=== PATIENT | male | born 1960 | race Caucasian/White ===

== ENCOUNTER 2020-07-25 10:12 | Outpatient (CLI) | payer MEDICARE, MEDICAID, SELFPAY ==
[2020-07-25 11:38] LABS: Add Urine Microscopic? NO; Appearance Urine Clear (Clear); Bilirubin Urine Negative (Negative); Blood Urine Negative (Negative); Color Urine Straw (Yellow); Glucose Urine UA Negative (Negative); Ketones Urine Negative (Negative); Leukocyte Esterase Ur Negative LEU/UL (Negative); Nitrate Urine Negative (Negative); Protein Urine Negative (Negative); Specific Grav Ur 1.009 (1.001-1.035); Urobilinogen Urine Negative mg/dL (<2.0)
[2020-07-25 11:46] LABS: Hemoglobin A1C 5.9 % (<5.7); Prothrombin Time 13.3 Seconds (11.1-14.7); Urine Cotinine NEGATIVE
[2020-07-25 11:47] LABS: Partial Thromboplastin Time 27.3 SECONDS (22.3-36.8)
== END 2020-07-25 10:13 | disposition home or self-care (01) ==
PROVIDERS: PCP Family Medicine; Visit Provider Orthopaedic Surgery
DX: M17.10 Unilateral primary osteoarthritis, unspecified knee (principal); Z01.818 Encounter for other preprocedural examination
CPT/HCPCS: 80307; 81003; 83036; 85610; 85730; 86850; 86900; 86901; 87081

== ENCOUNTER 2020-12-19 09:33 | Outpatient (CLI) | payer MEDICARE, MEDICAID, SELFPAY ==
[2020-12-19 11:14] LABS: Basophils Absolute Auto 0.1 K/mm3 (0.0-0.1); Eosinophils Absolute Auto 0.4 K/mm3 (0-0.3); Eosinophils Percent Auto 5.8 % (0-4.4); Hemoglobin 14.9 g/dL (14.0-18.0); Immature Granulocyte Absolute 0.02 K/mm3 (0.00-0.031); Immature Granulocyte Percent A 0.3 % (0-0.5); Lymphocytes Absolute Auto 1.94 K/mm3 (0.9-3.2); Lymphocytes Percent Auto 28.7 % (18.3-44.2); Mean Corpuscular HGB Conc 33.9 g/dl (32-36); Mean Corpuscular Hemoglobin 31.3 pg (26-34); Mean Corpuscular Volume 92.4 fl (80-100); Mean Platelet Volume 8.9 fl (7.4-10.4); Monocytes Absolute Auto 1.1 K/mm3 (0.1-0.6); Monocytes Percent Auto 16.7 % (2.6-8.5); Neutrophils Absolute Auto 3.2 K/mm3 (1.3-6.7); Neutrophils Percent Auto 47.5 % (45.5-73.1); Platelet Count Result 238 k/mm3 (150-375); Red Blood Count 4.76 M/mm3 (4.6-6.20); Red Cell Distribution Width 13.1 % (11.5-14.5); White Blood Count 6.8 K/mm3 (4.5-10.0)
[2020-12-19 11:21] LABS: Add Urine Microscopic? YES; Appearance Urine Clear (Clear); Bilirubin Urine Negative (Negative); Blood Urine Negative (Negative); Color Urine Amber (Yellow); Glucose Urine UA Negative (Negative); Ketones Urine Negative (Negative); Leukocyte Esterase Ur Negative LEU/UL (Negative); Mucus Urine Few /lpf; Nitrate Urine Negative (Negative); Protein Urine 1+ mg/dL (Negative); RBC Urine 0-2 /hpf (0-2); Squamous Epithelial Cell Urine Rare /hpf (Few); Urobilinogen Urine Negative mg/dL (<2.0); WBC Urine 0-3 /hpf
[2020-12-19 11:24] LABS: Urine Cotinine NEGATIVE
[2020-12-19 11:27] LABS: INR 1.1; Prothrombin Time 14.3 Seconds (11.1-14.7)
[2020-12-19 11:32] LABS: Albumin Level 4.2 g/dL (3.5-5.1); Anion Gap 4 mmol/L (8-16); Blood Urea Nitrogen 20 mg/dL (9-20); Carbon Dioxide 35 mmol/L (22-30); Chloride 103 mmol/L (98-107); Estimated Glomerular Filt Rate > 60; Glucose 97 mg/dL (75-110); Sodium 142 mmol/L (137-145)
== END 2020-12-19 09:34 | disposition home or self-care (01) ==
PROVIDERS: PCP Family Medicine; Visit Provider Orthopaedic Surgery
DX: Z01.812 Encounter for preprocedural laboratory examination (principal); M17.11 Unilateral primary osteoarthritis, right knee; Z51.81 Encounter for therapeutic drug level monitoring; Z79.899 Other long term (current) drug therapy
CPT/HCPCS: 80048; 80307; 81001; 82040; 83036; 85025; 85610; 85730; 86850; 86900; 86901; 87081

== ENCOUNTER 2021-03-08 13:56 | Outpatient (CLI) | payer MEDICARE, MEDICAID, SELFPAY ==
[2021-03-08 14:29] LABS: Add Urine Microscopic? YES; Amorphous Sediment Urine Few; Appearance Urine Cloudy (Clear); Bacteria Urine Trace /hpf; Basophils Absolute Auto 0.1 K/mm3 (0.0-0.1); Bilirubin Urine Negative (Negative); Blood Urine Negative (Negative); Color Urine Yellow (Yellow); Eosinophils Absolute Auto 0.2 K/mm3 (0-0.3); Eosinophils Percent Auto 2.9 % (0-4.4); Glucose Urine UA Negative (Negative); Hematocrit 40.9 % (42.0-52.0); Immature Granulocyte Absolute 0.02 K/mm3 (0.00-0.031); Immature Granulocyte Percent A 0.3 % (0-0.5); Ketones Urine Negative (Negative); Leukocyte Esterase Ur Negative LEU/UL (Negative); Lymphocytes Absolute Auto 2.42 K/mm3 (0.9-3.2); Lymphocytes Percent Auto 39.2 % (18.3-44.2); Mean Corpuscular HGB Conc 34.2 g/dl (32-36); Mean Corpuscular Volume 90.5 fl (80-100); Mean Platelet Volume 8.8 fl (7.4-10.4); Monocytes Absolute Auto 0.7 K/mm3 (0.1-0.6); Monocytes Percent Auto 11.7 % (2.6-8.5); Mucus Urine Rare /lpf; Neutrophils Absolute Auto 2.8 K/mm3 (1.3-6.7); Neutrophils Percent Auto 44.9 % (45.5-73.1); Nitrate Urine Negative (Negative); Platelet Count Result 251 k/mm3 (150-375); Protein Urine Negative (Negative); Red Blood Count 4.52 M/mm3 (4.6-6.20); Red Cell Distribution Width 12.5 % (11.5-14.5); Specific Grav Ur 1.011 (1.001-1.035); Urobilinogen Urine Negative mg/dL (<2.0); WBC Urine 0-3 /hpf; White Blood Count 6.2 K/mm3 (4.5-10.0)
[2021-03-08 14:35] LABS: Albumin Level 4.2 g/dL (3.5-5.1); Anion Gap 8 mmol/L (8-16); Blood Urea Nitrogen 12 mg/dL (9-20); Carbon Dioxide 28 mmol/L (22-30); Chloride 105 mmol/L (98-107); Estimated Glomerular Filt Rate > 60; Glucose 125 mg/dL (75-110); Potassium 3.9 mmol/L (3.4-5.0); Prothrombin Time 13.8 Seconds (11.1-14.7); Sodium 141 mmol/L (137-145)
[2021-03-08 14:36] LABS: Partial Thromboplastin Time 28.6 SECONDS (22.3-36.8)
[2021-03-08 14:39] LABS: Urine Cotinine NEGATIVE
[2021-03-08 15:45] LABS: Atypical Lymphocytes Present; Platelet Estimate Adequate (Adequate)
== END 2021-03-08 13:57 | disposition home or self-care (01) ==
PROVIDERS: PCP Family Medicine; Visit Provider Orthopaedic Surgery
DX: Z01.812 Encounter for preprocedural laboratory examination (principal); M17.11 Unilateral primary osteoarthritis, right knee; Z51.81 Encounter for therapeutic drug level monitoring; Z79.899 Other long term (current) drug therapy
CPT/HCPCS: 80048; 80307; 81001; 82040; 85025; 85610; 85730; 86850; 86900; 86901; 87081

== ENCOUNTER → 2021-03-11 00:06 | Outpatient (CLI) | payer MEDICARE, MEDICAID, SELFPAY ==
[2021-03-11 16:57] LABS: SARS-CoV-2 RNA PCR Negative
== END ==
PROVIDERS: PCP Family Medicine; Visit Provider Orthopaedic Surgery
DX: Z01.812 Encounter for preprocedural laboratory examination (principal); Z20.822 Contact with and (suspected) exposure to COVID-19
CPT/HCPCS: C9803; U0003; U0005

== ENCOUNTER 2021-03-16 16:20 | Observation (INO) | payer MEDICARE, MEDICAID, SELFPAY ==
[2020-07-25 10:24] VITALS: BMI 32.6
[2020-07-25 11:22] VITALS: BP 138/70; PULSE 51; RESP 16; TEMP 36.8; O2SAT 100
[2020-12-19 09:58] VITALS: BP 153/71; PULSE 59; RESP 16; TEMP 36.7; O2SAT 97; BMI 33.2
[2021-03-03 13:23] VITALS: BMI 33.2
[2021-03-15] VITALS (18 sets, daily range): BP systolic 122–145; BP diastolic 63–88; PULSE 54–80; RESP 12–18; TEMP 36–36.8; O2SAT 94–100
--- NOTE | 2021-03-15 07:20 | WPDHPUPDATE1 ---
History and Physical Update Update Date/Time: 03/15/21 07:20 History and Physical has been reviewed, including an updated exam of the patient. There are NO changes in the patient's condition. Risks, benefits, and alternatives have been discussed and questions answered. Patient agrees to proceed with procedure.
[2021-03-15] MEDS: ACETAMINOPHEN 500 MG TABLET 1000 MG PO (09:28)
[2021-03-15] MEDS: LACTATED RINGERS 1,000 ML 30 ML IV CONT ×2 (09:56→13:57)
--- NOTE | 2021-03-15 10:25 | WPDANESEPPF ---
Anes - Initial Pre Proc Eval Procedure: Operation Date: 03/15/21 11:00 Proposed Procedures p Right Total Knee Arthroplasty - Francisco Vo MD Date/Time: 03/15/21 10:25 Surgeon: Francisco Vo MD Pre Op Diagnosis: Right Knee DJD Patient Data Age: 60 Gender: M Height: 1.75 m Weight: 99.2 kg Last Vital Signs Temp 36.8 C 03/15/21 09:18 Pulse 65 03/15/21 09:18 Resp 16 03/15/21 09:18 BP 125/72 03/15/21 09:18 Pulse Ox 98 03/15/21 09:18 Allergies Allergy/AdvReac Type Severity Reaction Status Date / Time adhesive tape AdvReac Mild Rash Verified 03/15/21 09:19 Home Medications Medication Instructions Recorded Confirmed Type albuterol sulfate 90 mcg/actuation 1 puff INHALATION Q4H PRN 02/29/20 03/15/21 History aerosol inhaler alprazolam 0.5 mg tablet 0.5 mg PO TID 02/29/20 03/15/21 History aspirin 81 mg tablet,delayed 81 mg PO DAILY 02/29/20 03/15/21 History release calcium carbonate 200 mg calcium 200 mg PO PRN PRN 02/29/20 03/15/21 History (500 mg) chewable tablet carvedilol 3.125 mg tablet 3.125 mg PO Q12H 02/29/20 03/15/21 History clopidogrel 75 mg tablet 75 mg PO DAILY 02/29/20 03/15/21 History cyclobenzaprine 10 mg tablet 10 mg PO TID PRN 02/29/20 03/15/21 History famotidine 20 mg tablet 20 mg PO BID tablet 02/29/20 03/15/21 History isosorbide mononitrate 30 mg 30 mg PO DAILY 02/29/20 03/15/21 History tablet,extended release 24 hr isosorbide mononitrate 60 mg 60 mg PO DAILY 02/29/20 03/15/21 History tablet,extended release 24 hr nitroglycerin 0.4 mg sublingual 0.4 mg SUBLINGUAL Q5M PRN 02/29/20 03/15/21 History tablet pravastatin 80 mg tablet 80 mg PO DAILY 02/29/20 03/15/21 History paroxetine HCl 20 mg tablet 20 mg PO QAM 07/21/20 03/15/21 History teriparatide [Forteo] 20 mcg SUBCUT DAILY 07/25/20 03/15/21 History ergocalciferol (vitamin D2) 1,250 mcg PO WEEKLY 12/19/20 03/15/21 History [Vitamin D2] Patient hx anesthesia problems: none Family hx anesthesia problems: none [facility] Past Medical History Medical History Anxiety Back fracture Back pain Borderline diabetes Carpal tunnel syndrome CHF (congestive heart failure) COPD (chronic obstructive pulmonary disease) Degenerative joint disease of knee Depression Effusion of knee joint right GERD (gastroesophageal reflux disease) HLD (hyperlipidemia) HTN (hypertension) Right knee pain Smoker Vascular insufficiency Surgical History Surgical History H/O wrist surgery History of ankle surgery History of arthroscopy of knee History of carpal tunnel release Social History Social History Smoking packs per day: 1.5 Smoking cigarettes per day: 30.0 Years smoked: 20 Smoking pack-years: 30.00 Tobacco type: cigarettes Second hand tobacco smoke exposure: No Smoking end date: 02/07/21 Additional smoking assessment comments: DENIES ANY FORM OF TOBACCO USE Alcohol intake: current Drinks per week: 7 Alcohol use details: HEAVY DRINKER IN PAST, 40-60 BEERS/DAY, DECREASED 4 YRS AGO Substance use: unknown Substance use type: does not use Last use: 02/12/21 Living arrangements: other Additional living arrangements comments: has a home health worker due to inability to lift s/p back injury/fracture Additional occupation/education comments: on disability Gender identity (if verbalized by the patient): Male Spiritual care concerns: No Anes - Eval Final PreProcedure Day of Procedure 03/15/21 10:25 Patient weight: obese Heart: regular rate and rhythm Lungs: clear to auscultation Airway: Mallampati scale class II Neurological: alert and oriented Last oral intake: >/= 8 hours ASA classification: IV Emergent: no Anesthetic plan: proceed Anesthesia type and monitoring: general LMA and standard monitoring
[2021-03-15] MEDS: TRANEXAMIC ACID 1,000MG/ISO100 1,000 MG/100 ML BAG 200 MG IVPB (10:33)
--- NOTE | 2021-03-15 11:00 | WPDANESPNB ---
Anes - Peripheral Nerve Block Date/Time: 03/15/21 11:00 I have discussed with the patient/family/POA the placement of a peripheral nerve block for post-operative pain management, including associated risks, benefits, complications, and side effects. Alternative methods of post-operative analgesia were detailed. Questions were solicited and answers provided to the satisfaction of the patient/family/POA. Time-Out: A pre-procedural Time-Out was completed immediately before starting the procedure and confirmed: Patient Identification, Site, Procedure, Patient Position and the Availability of Requisite Equipment. Clinical Indications: Acute post-operative pain management requested by the operative surgeon. Nerve Block Insertion Note Anes-nerve block: femoral right Patient position: supine Skin prep: chlorhexidine Needle: 22 gauge, stimulating, insulated echogenic needle. Needle length: 50 mm Technique: nerve stimulation lost at (mA) (0.3) Injectate: bupivacaine 0.5% with epi 5 mcg/ml (20) and dexamethasone (mg) (6) Observations: tolerated well Complications: none Procedure start time:: 1100 Procedure end time:: 1104
[2021-03-15] MEDS: ceFAZolin 2 GM/D5W 50 ML 2 GM/50 ML BAG IVPB ×2 (11:20→18:18)
[2021-03-15] MEDS: GENTAMICIN BONE CEMENT REFOBACIN 1 EACH TOPICAL (12:13)
--- NOTE | 2021-03-15 13:53 | W.PM.PROC2 ---
Procedure Note - Detailed Date of Procedure 03/15/21 Pre-op Diagnosis Right Knee DJD Post-op Diagnosis same Procedure Performed R TKA Surgeon Francisco Vo MD Anesthesia general Description of Procedure THE RIGHT KNEE WAS PREPPED AND DRAPED IN THE STERILE FASHION. THERE WAS A 10 DEGREE FLEXION CONTRACTURE. A MIDLINE SKIN INCISION WAS MADE. A MEDIAL PARAPATELLAR ARTHROTOMY WAS MADE. THE PATELLA WAS EVERTED. THERE WAS TRICOMPARTMENT DJD. THERE WAS MINIMAL PATELLA DJD. AN INTRAMEDULLARY SANDRINE WAS PLACED IN THE FEMUR. A DISTAL FEMORAL CUT WAS MADE IN 5 DEGREES OF VALGUS REMOVING APPROXIMATELY 9 MM OF BONE FROM THE DISTAL FEMUR. THE FEMUR WAS SIZED TO 70. A 70 FEMORAL CUTTING BLOCK WAS PLACED IN 3 DEGREES OF EXTERNAL ROTATION AND IN ALIGNMENT WITH XEINA'S LINE AND THE TRANSEPICONDYLAR AXIS. ANTERIOR POSTERIOR AND CHAMFER CUTS WERE MADE. THE CUTS WERE EXCELLENT. NEXT AN INTRAMEDULLARY CUTTING GUIDE WAS PLACED IN THE TIBIA. A TRANS TIBIAL CUT WAS MADE ALONG THE LONG AXIS OF THE TIBIA. APPROXIMATELY 10 MM OF BONE WAS REMOVED FROM THE HIGH SIDE OF THE TIBIA. THE TIBIA WAS THEN PLANED TO A SMOOTH SURFACE. POSTERIOR FEMORAL OSTEOPHYTES WERE REMOVED FROM THE FEMORAL CONDYLES. A 79 TIBIAL TRIAL WAS PLACED IN ALIGNMENT WITH THE 1/3 MEDIAL ASPECT OF THE TIBIAL TUBERCLE. THEN A 70 FEMORAL TRIAL COMPONENT WAS PLACED. BOTH HAD EXCELLENT FITS. EVENTUALLY A 10 MM CR POLYETHYLENE TRIAL COMPONENT WAS PLACED. THE KNEE WAS TAKEN THROUGH A RANGE OF MOTION. THE KNEE CAME OUT TO FULL EXTENSION. THERE WAS NO ABNORMAL TILT TO THE PATELLA. THERE WAS GOOD A/P AND VARUS/VALGUS STABILITY. THERE WAS NO EXCESSIVE ROLL BACK WITH FLEXION. THE TRIAL COMPONENTS WERE REMOVED. THEN A 70 FEMORAL COMPONENT AND 79 TIBIAL COMPONENT WITH A 10 CR POLYETHYLENE COMPONENT WERE CEMENTED INTO PLACE. ONCE THE CEMENT WAS HARD THE KNEE WAS TAKEN THROUGH A ROM AGAIN AND FOUND TO BE STABLE WITH NO PATELLA TILT NO EXCESSIVE ROLL BACK WITH FLEXION AND GOOD STABILITY WITH COMPLETE AND FULL EXTENSION. THE KNEE WAS IRRIGATED WITH STERILE BETADINE AND WATER FOR ABOUT 3 MINUTES. THE BLEEDERS WERE CAUTERIZED. THE ARTHROTOMY WAS REPAIRED WITH NUMBER 1 VICRYL. THE SUB CUTANEOUS LAYER WITH 2-0 VICRYL AND THE SKIN WITH ILA. THE WOUND WAS WASHED AND A STERILE DRESSING WAS APPLIED. PATIENT WAS EXTUBATED. Estimated Blood Loss 50 Pathology none sent Complications No immediate complications Condition stable Disposition PACU
[2021-03-15] MEDS: HYDROmorphone HCL INJ (*CRX) 1 MG/ML SYR 0.25 MG IV PUSH ×4 (14:18→15:12)
--- NOTE | 2021-03-15 17:15 | ADMGEN ---
This patient, Abel Ford, was admitted to Medical Room 251-01. Patient/family oriented to hospital policies and general routines including ID bracelet, bed and alarms, visiting hours, pain management, procedures, bathroom and other care routines, personal items, smoking policy, room service/diet, and visiting hours. Information on how to activate the Rapid Response Team has been discussed. Patient/Family are encouraged to report perceived risks to care and to ask questions if they do not understand what they are told or what they should do.
[2021-03-15] MEDS: DOCUSATE SODIUM 100 MG CAPSULE PO (17:20)
[2021-03-15] MEDS: CELECOXIB 200 MG CAPSULE PO (17:20)
[2021-03-15] MEDS: oxyCODONE/ACETAMINOPHEN (*CRX) 5-325 MG TABLET 1 TABLET PO (17:20)
[2021-03-15] MEDS: ALPRAZolam (*CRX) 0.5 MG TABLET PO (17:20)
[2021-03-15] MEDS: FAMOTIDINE 20 MG TABLET PO (17:21)
[2021-03-15] MEDS: carvediloL 3.125 MG TABLET PO (21:42)
[2021-03-15] MEDS: ASPIRIN 325 MG ENTERIC TABLET PO (21:42)
[2021-03-15] MEDS: oxyCODONE HCL (*CRX) 5 MG TAB IR 10 MG PO (21:46)
[2021-03-16] VITALS (9 sets, daily range): BP systolic 104–153; BP diastolic 52–81; PULSE 44–87; RESP 18–20; TEMP 35.9–36.3; O2SAT 96–99
--- NOTE | ~2021-03-16 | XR_ITS ---
EXAMINATION: XR knee RT 2V DATE: 03/15/2021 14:14 INDICATION: Total right knee arthroplasty. Postop. TECHNIQUE: 2 views of right knee were obtained. COMPARISON: Right knee radiographs 12/19/2020, 12/18/13 FINDINGS: There is a total right knee arthroplasty in near-anatomic alignment without patellar resurf acing. No fracture. There is chronic expansion of distal femoral metaphysis medially. There is gas in the knee joint and soft tissues, consistent with recent surgery. Anterior skin omar are noted. IMPRESSION: 1. Total right knee arthroplasty in near-anatomic alignment. 2. Expansion of distal femoral metaphysis medially, stable from 12/18/2013, likely a benign finding suc h as old healed fracture. Reviewed, dictated and finalized at location A. IMPRESSION: 1. Total right knee arthroplasty in near-anatomic alignment. 2. Expansion of distal femoral metaphysis medially, stable from 12/18/2013, likel y a benign finding such as old healed fracture.
[2021-03-16] MEDS: ceFAZolin 2 GM/D5W 50 ML 2 GM/50 ML BAG IVPB ×3 (02:43→17:22)
[2021-03-16 05:48] LABS: Basophils Percent Auto 0.2 % (0.2-1.2); Hematocrit 38.1 % (42.0-52.0); Hemoglobin 12.6 g/dL (14.0-18.0); Immature Granulocyte Absolute 0.06 K/mm3 (0.00-0.031); Immature Granulocyte Percent A 0.5 % (0-0.5); Lymphocytes Absolute Auto 1.49 K/mm3 (0.9-3.2); Lymphocytes Percent Auto 11.5 % (18.3-44.2); Mean Corpuscular HGB Conc 33.1 g/dl (32-36); Mean Corpuscular Hemoglobin 30.8 pg (26-34); Mean Corpuscular Volume 93.2 fl (80-100); Mean Platelet Volume 9.3 fl (7.4-10.4); Monocytes Absolute Auto 1.1 K/mm3 (0.1-0.6); Monocytes Percent Auto 8.3 % (2.6-8.5); Neutrophils Absolute Auto 10.3 K/mm3 (1.3-6.7); Neutrophils Percent Auto 79.5 % (45.5-73.1); Platelet Count Result 235 k/mm3 (150-375); Red Blood Count 4.09 M/mm3 (4.6-6.20); Red Cell Distribution Width 12.7 % (11.5-14.5); White Blood Count 12.9 K/mm3 (4.5-10.0)
[2021-03-16 05:53] LABS: Anion Gap 6 mmol/L (8-16); Blood Urea Nitrogen 15 mg/dL (9-20); Calcium 8.5 mg/dL (8.4-10.2); Carbon Dioxide 29 mmol/L (22-30); Chloride 102 mmol/L (98-107); Estimated CRCL calculation 83 ml/min; Estimated Glomerular Filt Rate > 60; Glucose 152 mg/dL (75-110); Potassium 4.3 mmol/L (3.4-5.0); Sodium 137 mmol/L (137-145)
--- NOTE | 2021-03-16 08:04 | WPDANESPN ---
Anes - Prog Note Post-Op Date/Time: 03/16/21 08:04 Cardiovascular status: normal Respiratory status: normal Airway patency: baseline Mental status: baseline Post-Op hydration status: normal Vital Signs: Last Vital Signs Temp 35.9 C L 03/16/21 05:10 Pulse 53 L 03/16/21 05:10 Resp 18 03/16/21 05:10 BP 147/79 H 03/16/21 05:10 Pulse Ox 99 03/16/21 05:10 Pain Score (VAS): 0/10 I/O: Intake & Output 03/15/21 03/16/21 03/16/21 23:59 07:59 15:59 Intake Total 590 500 Output Total 350 Balance 590 150 Laboratory Tests 03/16/21 05:23 03/16/21 05:23 03/16/21 03/16/21 05:23 05:23 WBC 12.9 H RBC 4.09 L Hgb 12.6 L Hct 38.1 L MCV 93.2 MCH 30.8 MCHC 33.1 RDW 12.7 Plt Count 235 MPV 9.3 Immature Gran % (Auto) 0.5 Neut % (Auto) 79.5 H Lymph % (Auto) 11.5 L [place] % (Auto) 8.3 Eos % (Auto) 0.0 Baso % (Auto) 0.2 Lymph # (Auto) 1.49 [place] # (Auto) 1.1 H Eos # (Auto) 0.0 Baso # (Auto) 0.0 Abs Immat Gran (auto) 0.06 H Absolute Neuts (auto) 10.3 H Absolute Nucleated RBC 0.0 Nucleated RBC % 0.0 Sodium 137 Potassium 4.3 Chloride 102 Carbon Dioxide 29 Anion Gap 6 L BUN 15 Creatinine 1.00 Estim Creat Clear Calc 83 Estimated GFR > 60 Glucose 152 H Calcium 8.5 Patient Feedback: Patient satisfied with anesthetic care.
[2021-03-16] MEDS: PRAVASTATIN SODIUM 20 MG TABLET 80 MG PO (08:46)
[2021-03-16] MEDS: PARoxetine 20 MG TABLET PO (08:46)
[2021-03-16] MEDS: DOCUSATE SODIUM 100 MG CAPSULE PO ×2 (08:46→17:48)
[2021-03-16] MEDS: carvediloL 3.125 MG TABLET PO ×2 (08:46→22:21)
[2021-03-16] MEDS: ASPIRIN 325 MG ENTERIC TABLET PO ×2 (08:46→22:22)
[2021-03-16] MEDS: ISOSORBIDE MONONITRATE 60 MG TAB.ER.24H PO (08:47)
[2021-03-16] MEDS: FAMOTIDINE 20 MG TABLET PO ×2 (08:47→17:48)
[2021-03-16] MEDS: oxyCODONE/ACETAMINOPHEN (*CRX) 5-325 MG TABLET 1 TABLET PO ×2 (08:47→22:32)
[2021-03-16] MEDS: ISOSORBIDE MONONITRATE 30 MG TAB.ER.24H PO (08:47)
[2021-03-16] MEDS: CELECOXIB 200 MG CAPSULE PO ×2 (08:47→17:48)
--- NOTE | 2021-03-16 09:14 | PM.PNORT ---
Progress Note: A&P Assessment and Plan (1) S/P total knee replacement: Qualifiers: Laterality: right Qualified Code(s): Z96.651 - Presence of right artificial knee joint Code(s): Z96.659 - Presence of unspecified artificial knee joint Status: Acute Assessment and Plan: POD #1: Right TKA Continue PT/OT. WBAT. Walker. HIGH FALL RISK. Continue pain control. Ice knee. SCDs. Incentive spirometry. DVT prophylaxis. Dressing c/d/i. Change prior to discharge. Dispo: Home with Home Health pending progress with PT/OT. Subjective Subjective Date/Time Seen: 03/16/21 09:14 Post Op day: 1 Principal diagnosis: Right TKA Interval history: POD #1: Right TKA Patient doing well this morning. Pain well controlled. Up in the chair eating breakfast. No new concerns. Awaiting physical and occupational therapy. Review of Systems Review of Systems: All systems reviewed & are unremarkable except as noted in HPI and below Constitutional: Constitutional: Denies fever(s) and Denies headache(s) ENT: Denies headache(s) Cardiovascular: Cardiovascular: Denies chest pain, Denies diaphoresis, Denies palpitations and Denies dyspnea Respiratory: Respiratory: Denies dyspnea Gastrointestinal: Gastrointestinal: Denies abdominal pain, Denies constipation, Denies nausea and Denies vomiting Genitourinary: Genitourinary: Denies dysuria and Reports nocturia Musculoskeletal: Musculoskeletal: Reports arthralgias (Right Knee ) and Reports joint swelling (Right Knee ) Neurologic: Denies headache(s) Endocrine: Endocrine: Denies palpitations Exam Const: General: comfortable and no acute distress Resp: Effort & Inspection: normal respiratory effort Cardio: Rate: regular rate Rhythm: regular rhythm GI: GI Palp: Yes Soft to palpation, No Tenderness to palpation present (GI) and No Guarding due to palpation present (GI) Skin: Wounds: wounds noted Other: Incision c/d/i. No surrounding redness/warmth. No hematoma. Mild ecchymosis. No wound dehiscence Neuro: Cognition (Neuro): normal cognition Other: NV intact aside from block. Moves toes. Sensation intact to light touch. +ankle dorsiflexion/plantarflexion. 2+ pedal pulses. Extrem: Right lower extremity: normal to inspection, knee Details: tenderness (diffuse, mild ), swelling (diffuse, mild ) and abnormal ROM ( limited due to recent surgical intervention, able to flex and extend); no ecchymosis, ankle ( positive ankle dorsiflexion/ plantar flexion) Details: normal ROM and foot Details: toes with normal ROM, vascular exam ( 2+ pedal pulses) and motor-sensory exam Details: two point discrimination normal and light-touch normal Left lower extremity: normal to inspection Psych: Mental Status: mental status grossly normal Objective Data Vital Signs Vital Signs: Vital Signs - 24 hr 03/15/21 09:18 03/15/21 13:57 03/15/21 14:08 Temperature 36.8 C 36.1 C L Pulse Rate 65 63 59 L Respiratory Rate 16 14 16 Blood Pressure 125/72 126/77 133/79 Pulse Oximetry 98 98 99 03/15/21 14:20 03/15/21 14:25 03/15/21 14:35 Temperature Pulse Rate 56 L 56 L 57 L Respiratory Rate 16 14 14 Blood Pressure 137/84 134/86 135/82 Pulse Oximetry 98 96 94 03/15/21 14:45 03/15/21 14:50 03/15/21 15:00 Temperature Pulse Rate 55 L 54 L 54 L Respiratory Rate 12 12 14 Blood Pressure 132/70 132/76 145/79 H Pulse Oximetry 94 97 98 03/15/21 15:05 03/15/21 15:15 03/15/21 15:25 Temperature Pulse Rate 55 L 55 L 56 L Respiratory Rate 14 14 14 Blood Pressure 127/88 144/85 H 137/86 Pulse Oximetry 98 98 98 03/15/21 15:45 03/15/21 16:00 03/15/21 16:30 Temperature 36.2 C L 36.2 C L 36.1 C L Pulse Rate 57 L 55 L 60 Respiratory Rate 18 18 17 Blood Pressure 132/75 136/71 129/77 Pulse Oximetry 98 97 100 03/15/21 17:30 03/15/21 21:30 03/15/21 21:42 Temperature 36.1 C L 36.0 C L Pulse Rate 62 68 80 Respiratory Rate 18 18 Blood Pressure 126/73 122/63 Pulse
[2021-03-16] MEDS: ALPRAZolam (*CRX) 0.5 MG TABLET PO ×3 (09:30→17:48)
[2021-03-16] MEDS: CYCLOBENZAPRINE HCL 10 MG TABLET PO (11:30)
[2021-03-16] MEDS: oxyCODONE HCL (*CRX) 5 MG TAB IR 10 MG PO (13:46)
--- NOTE | 2021-03-16 14:51 | PM.IMCN ---
Assessment and Plan Assessment and plan (1) S/P total knee replacement: Qualifiers: Laterality: right Qualified Code(s): Z96.651 - Presence of right artificial knee joint Code(s): Z96.659 - Presence of unspecified artificial knee joint Status: Acute Assessment and Plan: Patient is seen POD#1 s/p right total knee arthroplasty by Dr Vo 03/15/21. Wound care, pain control, DVT prophylaxis per the primary service. Resume his Plavix when OK with primary service. (2) Coronary artery disease: Qualifiers: Coronary Disease-Associated Artery/Lesion type: [place] artery [place] vs. transplanted heart: [place] heart Associated angina: without angina Qualified Code(s): I25.10 - Atherosclerotic heart disease of [place] coronary artery without angina pectoris Code(s): I25.10 - Atherosclerotic heart disease of [place] coronary artery without angina pectoris Status: Chronic Assessment and Plan: Stable, no chest pain. History of multiple coronary stents. Patient says he had a negative stress test prior to this surgery. His solutions development analyst is Dr Juan Hemphill in [employer]. (3) HTN (hypertension): Qualifiers: Hypertension type: unspecified Qualified Code(s): I10 - Essential (primary) hypertension Code(s): I10 - Essential (primary) hypertension Status: Chronic Assessment and Plan: Blood pressures reviewed, stable today. Continue home Coreg, Imdur. Monitor BP and adjust treatment as needed. (4) COPD (chronic obstructive pulmonary disease): Qualifiers: COPD type: unspecified COPD Qualified Code(s): J44.9 - Chronic obstructive pulmonary disease, unspecified Code(s): J44.9 - Chronic obstructive pulmonary disease, unspecified Status: Chronic Assessment and Plan: No acute issues. No evidence of respiratory distress. Albuterol PRN. (5) HLD (hyperlipidemia): Qualifiers: Hyperlipidemia type: unspecified Qualified Code(s): E78.5 - Hyperlipidemia, unspecified Code(s): E78.5 - Hyperlipidemia, unspecified Status: Chronic Assessment and Plan: Continue home statin therapy. (6) Depression: Qualifiers: Depression Type: unspecified Qualified Code(s): F32.9 - Major depressive disorder, single episode, unspecified Code(s): F32.9 - Major depressive disorder, single episode, unspecified Status: Chronic Assessment and Plan: Stable. Continue home Paxil, Xanax. Additional Plan Thank you for allowing me to participate in this patient's care. Will follow with you while he is here. Call for any questions or concerns. HPI Data of Consult Consult date: 03/16/21 Requesting Physician: Francisco Vo MD Primary Care Provider: Harjit BishopMD Consult Narrative Reason for consult: Postoperative medical management Narrative: Date of Service 03/16/21 I am asked to see this patient in consultation at the request of Dr Vo for advice on postoperative medical management. The supervising physician for this medical consultation is Dr Autumn Stacy. Mr. Ford is a 60yo M with history of coronary artery disease, hypertension, dyslipidemia, COPD, depression and anxiety who is admitted after undergoing elective right total knee arthroplasty by Dr. Vo yesterday. He has had severe DJD to right knee for years and continued with significant pain despite conservative management. He is seen today POD#1 and describes his right knee pain as a 7 or 8/10 at this time. He denies any chest pain or palpitations. He describes some mild shortness of breath with exertion which he notes is not uncommon for him at baseline given
[2021-03-17 01:48] VITALS: BP 110/65; PULSE 51; RESP 16; TEMP 36.6; O2SAT 99
[2021-03-17 05:18] VITALS: BP 112/68; PULSE 54; RESP 16; TEMP 36.4; O2SAT 98
[2021-03-17] MEDS: oxyCODONE HCL (*CRX) 5 MG TAB IR 10 MG PO (06:27)
[2021-03-17] MEDS: ISOSORBIDE MONONITRATE 30 MG TAB.ER.24H PO (08:20)
[2021-03-17] MEDS: PARoxetine 20 MG TABLET PO (08:20)
[2021-03-17] MEDS: CELECOXIB 200 MG CAPSULE PO (08:20)
[2021-03-17] MEDS: DOCUSATE SODIUM 100 MG CAPSULE PO (08:20)
[2021-03-17] MEDS: ISOSORBIDE MONONITRATE 60 MG TAB.ER.24H PO (08:20)
[2021-03-17 08:21] VITALS: PULSE 51; RESP 16; O2SAT 98
[2021-03-17] MEDS: ASPIRIN 325 MG ENTERIC TABLET PO (08:21)
[2021-03-17] MEDS: FAMOTIDINE 20 MG TABLET PO (08:21)
[2021-03-17] MEDS: PRAVASTATIN SODIUM 20 MG TABLET 80 MG PO (08:21)
[2021-03-17] MEDS: oxyCODONE/ACETAMINOPHEN (*CRX) 5-325 MG TABLET 1 TABLET PO ×2 (08:27→14:23)
[2021-03-17] MEDS: ALPRAZolam (*CRX) 0.5 MG TABLET PO ×2 (08:28→12:51)
--- NOTE | 2021-03-17 10:16 | PM.PNORT ---
Progress Note: A&P Assessment and Plan (1) S/P total knee replacement: Qualifiers: Laterality: right Qualified Code(s): Z96.651 - Presence of right artificial knee joint Code(s): Z96.659 - Presence of unspecified artificial knee joint Status: Acute Assessment and Plan: POD #2: Right TKA Continue PT/OT. WBAT. Walker. HIGH FALL RISK. Continue pain control. Ice knee. SCDs. Incentive spirometry. DVT prophylaxis. Dressing c/d/i. Change prior to discharge. Dispo: Home with Home Health today pending progress with PT/OT. Subjective Subjective Date/Time Seen: 03/17/21 0950 POD #2: Right TKA Patient doing well. Pain well controlled. Up in the chair eating breakfast. No new concerns. Awaiting physical and occupational therapy. Review of Systems Review of Systems: All systems reviewed & are unremarkable except as noted in HPI and below Constitutional: Constitutional: Denies fever(s) and Denies headache(s) ENT: Denies headache(s) Cardiovascular: Cardiovascular: Denies chest pain, Denies diaphoresis, Denies palpitations and Denies dyspnea Respiratory: Respiratory: Denies dyspnea Gastrointestinal: Gastrointestinal: Denies abdominal pain, Denies constipation, Denies nausea and Denies vomiting Genitourinary: Genitourinary: Denies dysuria and Reports nocturia Musculoskeletal: Musculoskeletal: Reports arthralgias (Right Knee ) and Reports joint swelling (Right Knee ) Neurologic: Denies headache(s) Endocrine: Endocrine: Denies palpitations Exam Const: General: comfortable and no acute distress Resp: Effort & Inspection: normal respiratory effort Cardio: Rate: regular rate Rhythm: regular rhythm GI: GI Palp: Yes Soft to palpation, No Tenderness to palpation present (GI) and No Guarding due to palpation present (GI) Skin: Wounds: wounds noted Other: Incision c/d/i. No surrounding redness/warmth. No hematoma. Mild ecchymosis. No wound dehiscence Neuro: Cognition (Neuro): normal cognition Other: NV intact aside from block. Moves toes. Sensation intact to light touch. +ankle dorsiflexion/plantarflexion. 2+ pedal pulses. Extrem: Right lower extremity: normal to inspection, knee Details: tenderness (diffuse, mild ), swelling (diffuse, mild ) and abnormal ROM ( limited due to recent surgical intervention, able to flex and extend); no ecchymosis, ankle ( positive ankle dorsiflexion/ plantar flexion) Details: normal ROM and foot Details: toes with normal ROM, vascular exam ( 2+ pedal pulses) and motor-sensory exam Details: two point discrimination normal and light-touch normal Left lower extremity: normal to inspection Psych: Mental Status: mental status grossly normal Objective Data Vital Signs Vital Signs: Vital Signs - 24 hr 03/16/21 14:00 03/16/21 18:02 03/16/21 20:48 Temperature 36.3 C L 36.2 C L 36.3 C L Pulse Rate 59 L 44 L 51 L Respiratory Rate 18 20 20 Blood Pressure 113/54 L 104/52 L 116/57 L Pulse Oximetry 96 97 96 03/16/21 22:21 03/17/21 01:48 03/17/21 05:18 Temperature 36.6 C 36.4 C L Pulse Rate 60 51 L 54 L Respiratory Rate 16 16 Blood Pressure 110/65 112/68 Pulse Oximetry 99 98 03/17/21 08:21 Temperature Pulse Rate 51 L Respiratory Rate Blood Pressure Pulse Oximetry Intake/Output Intake/Output: Intake & Output 03/14/21 03/15/21 03/16/21 03/17/21 23:59 23:59 23:59 23:59 Intake Total 940 1370 Output Total 1075 Balance 940 295 Meds/Results Medications: Active Medications Generic Name Dose Route Start Last Admin Trade Name Freq PRN Reason Stop Dose Admin Acetaminophen 1,000 mg 03/15/21 15:26 Acetaminophen 500 Mg Tablet PO Q6H PRN Pain Rated 1-3 Albuterol 1 puff 03/15/21 15:26 Albuterol Sulfate (*Sp) Aerosol 1 Puff INHALATION Q4H PRN Shortness Of Breath Alprazolam 0.5 mg 03/15/21 17:00 03/17/21 08:28 Alprazolam (*Crx) 0.5 Mg Tablet PO 0.5 mg TID RENEE Administration
[2021-03-17 12:04] VITALS: O2SAT 98
--- NOTE | 2021-03-17 13:53 | PM.DS ---
DS: Admitting Diagnosis Admitting Diagnosis Admitting Diagnosis: Right knee DJD DS: Discharge Diagnosis Discharge Diagnosis (1) S/P total knee replacement: Qualifiers: Laterality: right Qualified Code(s): Z96.651 - Presence of right artificial knee joint Code(s): Z96.659 - Presence of unspecified artificial knee joint Status: Acute Assessment and Plan: POD #2: Right TKA Continue PT/OT. WBAT. Walker. HIGH FALL RISK. Continue pain control. Ice knee. SCDs. Incentive spirometry. DVT prophylaxis. Dressing c/d/i. Change prior to discharge. Dispo: Home with Home Health today pending progress with PT/OT. DS: Summary Hospital Course Reason for hospitalization: Right knee DJD Hospital Course: 60-year-old male admitted status post right total knee arthroplasty for postoperative medical management, pain control and physical and occupational therapy. Patient progressed well with Physical therapy and Occupational therapy although he did have difficulty with pain control on postop day 1. He was also unable to perform stair climbing due to pain on postop day 1. He was held until postop day 2 to improve mobility with physical and occupational therapy. At this time, he has been cleared to be discharged home with home health. Will follow up in the outpatient orthopedic clinic in 3 weeks. Status at Discharge Functional status at discharge: uses cane/walker Overall status at discharge: patient is progressing back to baseline Time Spent with Patient Time attestation: Total time spent providing and/or coordinating discharge services: Time spent: Less than 30 minutes Exam Const: General: comfortable and no acute distress Resp: Effort & Inspection: normal respiratory effort Cardio: Rate: regular rate Rhythm: regular rhythm GI: GI Palp: Yes Soft to palpation, No Tenderness to palpation present (GI) and No Guarding due to palpation present (GI) Skin: Wounds: wounds noted Other: Incision c/d/i. No surrounding redness/warmth. No hematoma. Mild ecchymosis. No wound dehiscence Neuro: Cognition (Neuro): normal cognition Other: NV intact aside from block. Moves toes. Sensation intact to light touch. +ankle dorsiflexion/plantarflexion. 2+ pedal pulses. Extrem: Right lower extremity: normal to inspection, knee Details: tenderness (diffuse, mild ), swelling (diffuse, mild ) and abnormal ROM ( limited due to recent surgical intervention, able to flex and extend); no ecchymosis, ankle ( positive ankle dorsiflexion/ plantar flexion) Details: normal ROM and foot Details: toes with normal ROM, vascular exam ( 2+ pedal pulses) and motor-sensory exam Details: two point discrimination normal and light-touch normal Left lower extremity: normal to inspection Psych: Mental Status: mental status grossly normal Discharge Plan Discharge Attending physician on discharge: Francisco Vo Consulting providers: Jojo Rubi Discharging Clinician: Jane Urias Anticipated Discharge Date/Time: 03/17/21 13:09 Patient Disposition: Home Health Service Activity: may shower, no driving and follow weight bearing status Diet: as tolerated Wound Care Instructions: follow printed instructions Discharge Instructions: Post Op Total Knee Replacement Instructions Dr. Francisco Vo [phone] ? Your dressing will be changed prior to your discharge. You will be sent home with one additional dressing to be changed in 5 days by the home health RN. Your omar will be removed on the 14th day after surgery and steri-strips will be placed. ? You may shower with your dressing but do not submerge in a bath tub. ? Do not drive or operate machinery until you are released by Dr. Vo. ? Do not walk without a walker for any reason until you are released by Dr. Vo. ? Continue to use your ice machine. Please use a towel or pillow case to protect your skin before applying your ice machine. ? Do NOT place a p
[2021-03-17 14:00] VITALS: BP 117/67; PULSE 64; RESP 16; TEMP 36.6; O2SAT 99
== END 2021-03-17 14:50 | disposition home health service (06) ==
LOC: ANHSURGERY 16:26 → ANH2MED 16:26
PROVIDERS: Admitting Provider Orthopaedic Surgery; PCP Family Medicine; Visit Provider Orthopaedic Surgery
PROC: (CPT 27447; principal; 2021-03-15 11:00)
DX: M17.11 Unilateral primary osteoarthritis, right knee (principal); I25.10 Atherosclerotic heart disease of native coronary artery without angina pectoris; I10 Essential (primary) hypertension; E78.5 Hyperlipidemia, unspecified; F32.9 Major depressive disorder, single episode, unspecified; F41.8 Other specified anxiety disorders; G89.18 Other acute postprocedural pain; J43.9 Emphysema, unspecified; Z87.891 Personal history of nicotine dependence
CPT/HCPCS: 27447; 64447; 36415; 73560; 80048; 80307; 81001; 82040; 85025; 85610; 85730; 86850; 86900; 86901; 87081; 97110; 97116; 97161; 97165; 97530; 97535; A9270; C1713; C1776; C9803; G0378; J0171; J0690; J1100; J1170; J2250; J2270; J2405; J2704; J2795; J3010; J7120; U0003; U0005

== ENCOUNTER 2021-05-09 16:15 | Outpatient (RCR) | payer MEDICARE, MEDICAID, SELFPAY ==
--- NOTE | 2021-05-11 17:38 | PCPTNOTE ---
Patient did not show up for scheduled appointment this date. he was called and did not answer. LMOM for patient to call to reschedule. CAROL
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
--- NOTE | 2021-07-11 10:05 | PCPTNOTE ---
patient has not been back to therapy since his initial evaluation. as of this date, he will be dc'd from skilled PT services and all progress towards goals will be taken from his most recent evaluation/note. CAROL
== END 2021-05-09 17:04 | disposition home or self-care (01) ==
LOC: CHSPT 16:15
PROVIDERS: PCP Family Medicine; Visit Provider Orthopaedic Surgery
DX: Z96.651 Presence of right artificial knee joint (principal)
CPT/HCPCS: 97110; 97162

== ENCOUNTER → 2021-05-27 01:46 | Outpatient (CLI) | payer MEDICARE, MEDICAID, SELFPAY ==
[2021-05-27 19:29] LABS: SARS-CoV-2 RNA PCR Negative
== END ==
PROVIDERS: PCP Family Medicine; Visit Provider Orthopaedic Surgery
DX: Z01.812 Encounter for preprocedural laboratory examination (principal); Z20.822 Contact with and (suspected) exposure to COVID-19
CPT/HCPCS: C9803; U0003; U0005

== ENCOUNTER 2021-05-31 00:47 | Day surgery (SDC) | payer MEDICARE, MEDICAID, SELFPAY ==
[2021-05-25 17:01] VITALS: BMI 31.6
--- NOTE | 2021-05-30 14:49 | WPDANESEPPF ---
Anes - Initial Pre Proc Eval Procedure: Operation Date: 05/31/21 10:30 Proposed Procedures p Right Knee Manipulation Under Anesthesia with Injection - Fracnisco Vo MD Date/Time: 05/30/21 14:49 Surgeon: Francisco Vo MD Pre Op Diagnosis: right knee adhesive capsulitis Patient Data Age: 60 Gender: M Height: 1.78 m Weight: 100 kg Allergies Allergy/AdvReac Type Severity Reaction Status Date / Time adhesive tape AdvReac Mild Rash Verified 05/31/21 08:55 Home Medications Medication Instructions Recorded Confirmed Type albuterol sulfate 90 mcg/actuation 1 puff INHALATION Q4H PRN 02/29/20 05/31/21 History aerosol inhaler alprazolam 0.5 mg tablet 0.5 mg PO TID 02/29/20 05/31/21 History aspirin 81 mg tablet,delayed 81 mg PO DAILY 02/29/20 05/31/21 History release calcium carbonate 200 mg calcium 200 mg PO PRN PRN 02/29/20 05/31/21 History (500 mg) chewable tablet carvedilol 3.125 mg tablet 3.125 mg PO Q12H 02/29/20 05/31/21 History clopidogrel 75 mg tablet 75 mg PO DAILY 02/29/20 05/31/21 History cyclobenzaprine 10 mg tablet 10 mg PO TID PRN 02/29/20 05/31/21 History famotidine 20 mg tablet 20 mg PO BID tablet 02/29/20 05/31/21 History isosorbide mononitrate 30 mg 30 mg PO DAILY 02/29/20 05/31/21 History tablet,extended release 24 hr isosorbide mononitrate 60 mg 60 mg PO DAILY 02/29/20 05/31/21 History tablet,extended release 24 hr nitroglycerin 0.4 mg sublingual 0.4 mg SUBLINGUAL Q5M PRN 02/29/20 05/31/21 History tablet pravastatin 80 mg tablet 80 mg PO DAILY 02/29/20 05/31/21 History paroxetine HCl 20 mg tablet 20 mg PO QAM 07/21/20 05/31/21 History Forteo 20 mcg SUBCUT DAILY 07/25/20 05/31/21 History Patient hx anesthesia problems: none Family hx anesthesia problems: none [facility] Past Medical History Medical History (Updated 05/30/21 @ 14:49 by Mark Vaughn MD) Adhesive capsulitis of right knee Anxiety Back fracture Back pain Borderline diabetes Carpal tunnel syndrome CHF (congestive heart failure) COPD (chronic obstructive pulmonary disease) Coronary artery disease Degenerative joint disease of knee Depression Effusion of knee joint right GERD (gastroesophageal reflux disease) History of reduction of closed fracture right leg fracture, closed reduction HLD (hyperlipidemia) HTN (hypertension) Right knee pain Smoker Vascular insufficiency Surgical History Surgical History H/O cardiac catheterization patient reports several (13?) cardiac catheterizations dating back to 2007, has 3 coronary stents placed s/p acute [place] 2008 H/O wrist surgery Left thumb ORIF with hardware placement History of ankle surgery History of arthroscopy of knee 01/06/[address] Vo History of carpal tunnel release History of excision of mass excision of a benign tumor at right thigh History of tonsillectomy at age 20 S/P total knee replacement 03/15/[address] Vo Social History Social History Smoking packs per day: 1 Smoking cigarettes per day: 20.0 Years smoked: 45 Smoking pack-years: 45.00 Smoking status: Never smoker Tobacco type: cigarettes Second hand tobacco smoke exposure: No Smoking end date: 11/14/20 Additional smoking assessment comments: DENIES ANY FORM OF TOBACCO USE; quit 02/07/21 Alcohol intake: current Drinks per week: 7 Alcohol use details: HEAVY DRINKER IN PAST, 40-60 BEERS/DAY, DECREASED 4 YRS AGO; now reports 1 beer per day Substance use: current Substance use type: marijuana Other substance usage details: Nightly at bedtime. Last use: 02/12/21 Living arrangements: with family Additional living arrangements comments: has a home health worker due to inability to lift s/p back injury/fracture Additional occupation/education comments: on disability Gender identity (if verbalized by the patient): Male
[2021-05-31] VITALS (9 sets, daily range): BP systolic 114–144; BP diastolic 69–81; PULSE 47–59; RESP 14–16; TEMP 36.1; O2SAT 95–100
--- NOTE | 2021-05-31 07:24 | WPDHPUPDATE1 ---
History and Physical Update Update Date/Time: 05/31/21 07:24 History and Physical has been reviewed, including an updated exam of the patient. There are NO changes in the patient's condition. Risks, benefits, and alternatives have been discussed and questions answered. Patient agrees to proceed with procedure.
[2021-05-31] MEDS: ACETAMINOPHEN 500 MG TABLET 1000 MG PO (09:01)
[2021-05-31] MEDS: CELECOXIB 200 MG CAPSULE PO (09:01)
[2021-05-31] MEDS: LACTATED RINGERS 1,000 ML 30 ML IV CONT (09:09)
[2021-05-31] MEDS: methylPREDNISolone ACETATE 80 MG/ML VIAL 160 MG IM (09:47)
--- NOTE | 2021-05-31 09:54 | W.PM.PROC2 ---
Procedure Note - Detailed Date of Procedure 05/31/21 Pre-op Diagnosis right knee adhesive capsulitis Post-op Diagnosis same Procedure Performed RUSTAM, INJECTION RIGHT TKA Surgeon Francisco Vo MD Anesthesia general Description of Procedure THE PATIENT WAS TAKEN TO THE OPERATING ROOM AND PLACED UNDER GENERAL ANESTHESIA. ONCE HE WAS CHEMICALLY PARALYZED THE RIGHT KNEE WAS MANIPULATED UNTIL ABOUT 125 DEG OF FLEXION AND FULL EXTENSION WERE ACHIEVED. NEXT THE RIGHT KNEE WAS PREPPED AND DRAPED STERILELY. DEPO MEDROL 80 MG X 2 CC AND MARCAINE 0.5% 7 CC WERE INJECTED IN TO THE RIGHT KNEE JOINT. THE PATIENT WAS SENT TO THE RECOVERY ROOM ONCE GENERAL ANESTHESIA WAS REVERSED, IN STABLE CONDITION.
[2021-05-31] MEDS: oxyCODONE HCL (*CRX) 5 MG TAB IR PO (11:10)
== END 2021-05-31 11:51 | disposition home or self-care (01) ==
PROVIDERS: PCP Family Medicine; Visit Provider Orthopaedic Surgery
PROC: (CPT 27570; principal; 2021-05-31 10:30)
DX: M76.891 Other specified enthesopathies of right lower limb, excluding foot (principal); M25.661 Stiffness of right knee, not elsewhere classified; Z91.81 History of falling; Z96.651 Presence of right artificial knee joint; I11.0 Hypertensive heart disease with heart failure; I50.9 Heart failure, unspecified; I25.10 Atherosclerotic heart disease of native coronary artery without angina pectoris; E78.5 Hyperlipidemia, unspecified; F41.8 Other specified anxiety disorders; R73.03 Prediabetes; I99.8 Other disorder of circulatory system; Z95.5 Presence of coronary angioplasty implant and graft; Z87.891 Personal history of nicotine dependence; F12.90 Cannabis use, unspecified, uncomplicated; E66.9 Obesity, unspecified; Z68.31 Body mass index [BMI] 31.0-31.9, adult; Z79.51 Long term (current) use of inhaled steroids; Z79.82 Long term (current) use of aspirin
CPT/HCPCS: 27570; A9270; C9803; J1040; J1100; J2250; J2405; J2704; J3010; J7120; U0003; U0005